=== PATIENT | male | born 2000 | race Caucasian/White ===

== ENCOUNTER 2025-07-14 18:21 | Emergency (ER) | payer MEDICAID, SELFPAY ==
[2025-07-14 18:28] VITALS: BP 124/58; PULSE 84; RESP 16; TEMP 36.8; O2SAT 97
[2025-07-14] MEDS: Famotidine 20 MG TAB 40 MG PO (19:31)
[2025-07-14] MEDS: diphenhydrAMINE 25 MG CAP PO (19:31)
[2025-07-14] MEDS: predniSONE 20 MG TAB 40 MG PO (19:31)
--- NOTE | 2025-07-14 22:00 | W.ED.GENAD ---
Discharge Plan Disposition Patient Disposition: Home Condition: Stable Discharge Details Clinical Impression: Allergic reaction Primary Care Provider: None,None ED Provider: Sara Mccracken Home Meds and New Rx's Prescriptions: New prednisone 20 mg tablet 40 mg PO DAILY Qty: 10 0RF epinephrine 0.3 mg/0.3 mL auto-injector 0.3 ml IM Q5-15M PRNQty: 2 0RF Rx Instructions: do not exceed 3 doses per episode Continued estradiol valerate 40 mg/mL oil 20 mg IM Q2W Discharge Instructions Instructions: Allergic Reaction ED Additional Instructions: Take 50 mg of Benadryl before you go to bed tonight, at 11 or 12 is reasonable fill the prescription for prednisone and take your next dose tomorrow I have given you a prescription for an EpiPen however you are only to use this if you feel your throat swelling, shortness of breath, with worsening symptoms You may take Claritin during the day and take some Benadryl if it makes you tired HPI General Date/Time Provider Initiated Documentation: 07/14/25 18:44. HPI Narrative: This 24-year-old presents with report of lip swelling that started at 5 after eating a turkey sandwich. States may take some Benadryl 25 mg and is improved but not resolved. Denies history of anaphylaxis in the past. Denies any chest pain, shortness of breath, difficulty swallowing. Denies any rashes or lesions. Denies any change in phonation. Related Data Home Medications ?Medication ?Instructions ?Recorded ?Confirmed epinephrine 0.3 mg/0.3 mL 0.3 ml IM Q5-15M PRN #2 ea 07/14/25 injection, auto-injector estradiol valerate 40 mg/mL 20 mg IM Q2W 07/14/25 07/14/25 intramuscular oil prednisone 20 mg tablet 40 mg (2 x 20 mg) PO DAILY #10 tabs 07/14/25 Previous Rx's ?Medication ?Instructions ?Recorded epinephrine 0.3 mg/0.3 mL 0.3 ml IM Q5-15M PRN #2 ea 07/14/25 injection, auto-injector prednisone 20 mg tablet 40 mg (2 x 20 mg) PO DAILY #10 tabs 07/14/25 Allergies Allergy/AdvReac Type Severity Reaction Status Date / Time Unable to Assess Allergy Verified 07/14/25 18:37 General Stated Complaint: Allergic RAHUL: 3 Exam Narrative Exam Narrative: Alert and oriented 24-year-old male in no acute distress oropharynx patent uvula midline swelling noted to right side of lip, no rashes or lesions no stridor lungs clear to auscultation Course Vital Signs Vital signs: Vital Signs Temperature 36.8 C 07/14/25 18:28 Pulse 84 07/14/25 18:28 Respiratory Rate 16 07/14/25 18:28 Blood Pressure 124/58 L 07/14/25 18:28 Pulse Oximetry 97 07/14/25 18:28 Temperature 36.8 C 07/14/25 18:28 Temperature Source Oral 07/14/25 18:28 Pulse 84 07/14/25 18:28 Respiratory Rate 16 07/14/25 18:28 Respiratory Effort Normal 07/14/25 19:29 Respiratory Pattern Normal 07/14/25 19:29 Blood Pressure 124/58 L 07/14/25 18:28 Blood Pressure Position Sitting 07/14/25 18:28 Pulse Oximetry 97 07/14/25 18:28 Oxygen Delivery Method Room Air 07/14/25 18:28 Oxygen Flow Rate 0 07/14/25 18:28 Pain Level 4 07/14/25 18:28 Medical Decision Making 24-year-old presenting with report of possible allergic reaction to a sandwich. Took 25 mg of Benadryl, secondary to some mild persistent swelling will get Benadryl prednisone and Pepcid. Patient will be given prednisone for home which they will continue. EpiPen with precautions for use reviewed in detail and patient expressed understanding discharged home in stable condition with stable vitals. Improving symptoms after 1 hour of observation 3 hours after onset. PFSH All Active Problems (Updated 07/14/25 @ 20:02 by AMAURY Valencia) Allergic reaction (Acute) Social History Smoking risk assessment performed?: No Alcohol Intake: current Alcohol Intake frequency: holidays/special occasions only Alcohol type: beer Substance use type: marijuana
--- NOTE | 2025-07-15 12:42 | NUR.NOTE ---
Patient's partner called stating that the patient went to [facility] but the RX were not there. After checking, [facility] was the preferred. Dr. Mendoza is resending the RX to [facility] in [facility]. Partner is aware and approved to have [facility] in [facility] to be the preferred pharmacy. (Nathan Simmons, partner) Nursing Note:
== END 2025-07-14 20:13 | disposition home or self-care (01) ==
PROVIDERS: Emergency Provider Physician Assistant
DX: T78.40XA Allergy, unspecified, initial encounter (principal)
CPT/HCPCS: 99283 ×2; J7512